=== PATIENT | female | born 1970 | race Caucasian/White ===

== ENCOUNTER 2023-01-25 14:39 | Emergency (ER) | payer MEDICAID ==
[~2023-01-25] VITALS: Ht 165.1 cm; Wt 108.0 kg
[~2023-01-25 14:39] MED LIST: IBUP-2028 MT
[2023-01-25 15:21] LABS: BASOPHILS % 0.6 % (0.0-2.0); EOSINOPHILS % 2.3 % (0.0-5.0); HEMATOCRIT. 37.7 % (36.0-48.0); HEMOGLOBIN. 12.6 g/dL (12.0-16.0); LYMPHOCYTES % 33.7 % (20.0-50.0); MEAN CORPUSCULAR HEMOGLOBIN 28.2 pg (28.0-32.0); MEAN CORPUSCULAR VOLUME 84.6 fL (81.0-99.0); MEAN PLATELET VOLUME 8.8 fl (7.4-10.4); MONOCYTES % 6.2 % (2.0-8.0); NEUTROPHILS % 57.2 % (40.0-76.0); PLATELET 306 x1000/uL (130-400); RED BLOOD CELL COUNT 4.46 mill/uL (4.2-5.4); RED CELL DISTRIBUTION WIDTH 13.9 % (11.6-14.6)
[2023-01-25 15:26] LABS: CHLORIDE 108 mEq/L (98-107)
[2023-01-25] MEDS ORDERED: SODIUM CHLORIDE 0.9% 1,000 ML IV ONE (16:00)
[2023-01-25] MEDS ORDERED: METOCLOPRAMIDE HCL 10MG/2ML VIAL IV NR (16:00)
[2023-01-25] MEDS ORDERED: MECLIZINE 12.5MG TABLET PO NR (16:00)
[2023-01-25] MEDS ORDERED: KETOROLAC 30MG/ML VIAL IV NR (17:15)
[2023-01-25] MEDS ORDERED: TOPUD MT (19:42)
[2023-01-25 20:04] VITALS: BP 128/71
== END 2023-01-25 20:30 | disposition home or self-care (01) ==
LOC: ER 16:32
DX: R51.9 Headache, unspecified (principal); R42 Dizziness and giddiness; R11.0 Nausea; I10 Essential (primary) hypertension
CPT/HCPCS: 36415; 70450; 71045; 80053; 83690; 84484; 85025; 93005; 96361; 96374; 99285; J1885; J2765; J8597; Z7610

== ENCOUNTER 2023-07-16 17:44 | Emergency (ER) | payer MEDICAID ==
[~2023-07-16] VITALS: Ht 167.6 cm; Wt 100.0 kg
[~2023-07-16 17:44] MED LIST changes: +TOPUD MT
[2023-07-16 18:05] VITALS: TEMP 98.6; O2SAT 98
[2023-07-16 20:56] LABS: CLARITY URINE CLEAR (CLEAR); COLOR URINE DARK YELLOW (YELLOW); GLUCOSE URINE NEGATIVE (NEGATIVE); KETONES URINE NEGATIVE (NEGATIVE); LEUKOCYTE ESTERASE URINE NEGATIVE (NEGATIVE); NITRITE URINE POSITIVE (NEGATIVE); OCCULT BLOOD URINE NEGATIVE (NEGATIVE); PH URINE 5.5 (4.5-8.0); PROTEIN URINE NEGATIVE (NEGATIVE); SPECIFIC GRAVITY URINE 1.011 (1.005-1.030)
[2023-07-16 20:58] LABS: BACTERIA URINE NONE SEEN; RBC URINE NONE SEEN /hpf (0-2); SQUAMOUS EPITHELIAL CELL URINE NONE SEEN /lpf (RARE/1+); WBC URINE NONE SEEN /hpf (0-2); YEAST URINE NONE SEEN
[2023-07-16 22:30] VITALS: BP 141/98; PULSE 82; RESP 18
[2023-07-16] MEDS ORDERED: KETOROLAC 30MG/ML VIAL IM ONE (22:30)
[2023-07-16] MEDS ORDERED: CIPR-263 MT (22:41)
[2023-07-16] MEDS ORDERED: PYR200 MT (22:41)
== END 2023-07-16 23:14 | disposition home or self-care (01) ==
LOC: ER 17:44
DX: R30.0 Dysuria (principal); I10 Essential (primary) hypertension; Z98.890 Other specified postprocedural states
CPT/HCPCS: 99283; 81003; 81025; 87086; 96372; J1885